=== PATIENT | female | born 1985 | race Two or more races ===

== ENCOUNTER → 2017-07-23 | Outpatient (CLI) | payer BC ==
[2017-07-23 10:10] LABS: Basophils # (auto) 0 uL; Basophils % (auto) 0.4 % (0.0-2.0); Eosinophils # (auto) 0 uL; Eosinophils % (auto) 0.4 % (0.0-7.0); Hematocrit 40.1 % (36.0-46.0); Hemoglobin 13.4 g/dL (12.2-16.2); Lymphocytes # (auto) 1.8 uL; Lymphocytes % (auto) 21.2 % (10.0-50.0); Mean Corpuscular Hemoglobin 29.8 pg (28.0-32.0); Mean Corpuscular Hgb Conc. 33.5 g/dL (32.0-36.0); Mean Platelet Volume 8.3 fL (6.9-10.8); Monocytes # (auto) 0.3 uL; Monocytes % (auto) 3.8 % (0.0-12.0); Neutrophils # (auto) 6.2 uL; Neutrophils % (auto) 74.2 % (37.0-80.0); Nucleated Red Blood Cells % 0.1 %; Platelet Count (auto) 247 10^3/uL (140-450); Red Cell Distribution Width 13.3 % (11.8-14.3); White Blood Cell 8.4 10^3/uL (4.4-10.8)
== END | disposition home or self-care (01) ==
LOC: LAB 09:14
PROVIDERS: ATTEND Obstetrics & Gynecology
DX: Z34.00 Encounter for supervision of normal first pregnancy, unspecified trimester (principal)
CPT/HCPCS: 36415; 80307; 83036; 84144; 84702; 85025; 86703; 86762; 86850; 86900; 86901; 87086; 87340

== ENCOUNTER → 2017-11-25 | Outpatient (CLI) | payer BC ==
[2017-11-25 07:48] LABS: Hematocrit 35.1 % (36.0-46.0); Hemoglobin 11.7 g/dL (12.2-16.2); Mean Corpuscular Hemoglobin 29.3 pg (28.0-32.0); Mean Corpuscular Hgb Conc. 33.3 g/dL (32.0-36.0); Platelet Count (auto) 242 10^3/uL (140-450); Red Blood Cells 3.99 10^6/uL (4.0-5.20); Red Cell Distribution Width 13.8 % (11.8-14.3); White Blood Cell 8.6 10^3/uL (4.4-10.8)
[2017-11-25 08:13] LABS: Basophils % (manual) 0 (0.0-2.0); Blast Cells 0; Metamyelocytes % 0; Myelocytes % 0; Promyelocytes % 0; Reactive Lymphocytes 0
[2017-11-25 09:47] LABS: Band Neutrophils % (manual) 3; Lymphocytes % (manual) 23 (10.0-50.0)
[2017-11-25 09:48] LABS: Eosinophils % (manual) 1 (0-7); Monocytes % (manual) 4 (0-12)
== END | disposition home or self-care (01) ==
LOC: LAB 07:12
PROVIDERS: ATTEND Obstetrics & Gynecology
DX: O99.810 Abnormal glucose complicating pregnancy (principal); Z3A.00 Weeks of gestation of pregnancy not specified
CPT/HCPCS: 36415; 82951; 85007; 85027

== ENCOUNTER → 2018-01-16 | Outpatient (CLI) | payer BC ==
[2018-01-16 14:30] LABS: Basophils # (auto) 0 uL; Basophils % (auto) 0.5 % (0.0-2.0); Eosinophils # (auto) 0.1 uL; Eosinophils % (auto) 0.6 % (0.0-7.0); Hematocrit 37.8 % (36.0-46.0); Hemoglobin 12.5 g/dL (12.2-16.2); Lymphocytes # (auto) 2.1 uL; Lymphocytes % (auto) 19.7 % (10.0-50.0); Mean Corpuscular Hemoglobin 28.7 pg (28.0-32.0); Mean Corpuscular Hgb Conc. 33.2 g/dL (32.0-36.0); Mean Corpuscular Volume 86.3 fL (80.0-100.0); Monocytes # (auto) 0.4 uL; Monocytes % (auto) 3.5 % (0.0-12.0); Neutrophils # (auto) 7.9 uL; Neutrophils % (auto) 75.7 % (37.0-80.0); Nucleated Red Blood Cells % 0.1 %; Platelet Count (auto) 264 10^3/uL (140-450); Red Blood Cells 4.38 10^6/uL (4.0-5.20); White Blood Cell 10.4 10^3/uL (4.4-10.8)
== END | disposition home or self-care (01) ==
LOC: LAB 14:17
PROVIDERS: ATTEND Obstetrics & Gynecology
DX: O23.599 Infection of other part of genital tract in pregnancy, unspecified trimester (principal); Z3A.00 Weeks of gestation of pregnancy not specified
CPT/HCPCS: 36415; 85025; 87081

== ENCOUNTER 2018-02-22 02:45 | Inpatient (IN) | payer BC ==
[~2018-02-22] VITALS: Ht 162.6 cm; Wt 98.4 kg
[2018-02-22] MEDS ORDERED: PREN-96 OR (03:55)
[2018-02-22] MEDS ORDERED: LACT. RINGERS/OXYTOCIN 20UNITS 1,000 ML IV SCH (07:07)
[2018-02-22] MEDS ORDERED: PHISODERM TOP SOLN 240ML BTL TOP PRN (07:15)
[2018-02-22] MEDS ORDERED: NALBUPHINE HCL 10 MG/1ml INJECTION IV PRN (07:15)
[2018-02-22] MEDS ORDERED: LIDOCAINE 2% (LOCAL ANESTH.) PF 5ml SDV ID PRN (07:15)
[2018-02-22] MEDS ORDERED: DERMOPLAST 60ML BOTTLE TOP PRN (07:15)
[2018-02-22] MEDS ORDERED: WITCH HAZEL-GLYCERIN PAD TOP PRN (07:15)
[2018-02-22] MEDS ORDERED: ceFAZolin 1GM/100ML 100 ML IV ONE (07:45)
[2018-02-22] MEDS: LACTATED RINGER'S 1,000 ML IV SCH ×3 (07:50→23:07)
[2018-02-22 07:55] LABS: Basophils # (auto) 0 uL; Basophils % (auto) 0.3 % (0.0-2.0); Eosinophils # (auto) 0 uL; Eosinophils % (auto) 0.1 % (0.0-7.0); Hematocrit 37.1 % (36.0-46.0); Hemoglobin 12.3 g/dL (12.2-16.2); Lymphocytes # (auto) 1.9 uL; Mean Corpuscular Hemoglobin 28.9 pg (28.0-32.0); Mean Corpuscular Hgb Conc. 33.2 g/dL (32.0-36.0); Mean Corpuscular Volume 87.1 fL (80.0-100.0); Monocytes # (auto) 0.4 uL; Monocytes % (auto) 3.2 % (0.0-12.0); Neutrophils % (auto) 82.4 % (37.0-80.0); Platelet Count (auto) 205 10^3/uL (140-450); Red Blood Cells 4.26 10^6/uL (4.0-5.20); Red Cell Distribution Width 14.9 % (11.8-14.3); White Blood Cell 13.4 10^3/uL (4.4-10.8)
[2018-02-22 08:01] LABS: INR 0.89 (0.9-1.15); Partial Thromboplastin Time 26.6 sec (22.64-33.71); Prothrombin Time 9.7 sec (9.37-12.3)
[2018-02-22 08:04] LABS: Urine Bacteria NONE SEEN /hpf (None Seen); Urine Blood 1+ /uL (Negative); Urine Mucus FEW (None Seen); Urine Specific Gravity 1.013 (1.001-1.035); Urine WBC 1 /hpf (0 - 5)
[2018-02-22 08:31] LABS: Albumin 2.7 g/dL (3.4-5.0); BUN/Creatinine Ratio 14.3; Bilirubin, Total 0.3 mg/dL (0.2-1.0); Calcium 8.8 mg/dL (8.5-10.1); Potassium 4.6 mmol/L (3.5-5.1); Total Protein 7.1 g/dL (6.4-8.2)
[2018-02-22] MEDS ORDERED: ePHEDrine SULFATE 50 MG/ML AMP IV ONE ×2 (12:30→19:15)
[2018-02-22] MEDS ORDERED: LIDOCAINE HCL 2 %PF INJ 10ML AMP IJ ONE (12:30)
[2018-02-22] MEDS ORDERED: NALOXONE HCL 0.4 MG/ML VIAL IV ONE ×2 (12:30→19:15)
[2018-02-22] MEDS ORDERED: fentaNYL W ROPIVACAINE 150 ML EPI SCH (12:30)
[2018-02-22] MEDS ORDERED: fentaNYL CITRATE 100 MCG/2 ML VL IV ONE ×2 (12:30→19:15)
[2018-02-22] MEDS: ceFAZolin 1GM/100ML 100 ML IV SCH ×2 (13:50→22:16)
[2018-02-23] VITALS (12 sets, daily range): BP systolic 112–149; BP diastolic 58–97
[2018-02-23] MEDS ORDERED: OXYTOCIN 10 UNIT/ML 10ML VIAL ONE (03:26)
[2018-02-23] MEDS ORDERED: MORPHINE SULF(PF) 0.5MG/ML 10ML VIAL ONE (03:26)
[2018-02-23] MEDS ORDERED: LIDOCAINE HCL 2 %PF INJ 10ML AMP IJ ONE ×2 (03:31→04:50)
[2018-02-23] MEDS ORDERED: ONDANSETRON HCL 4 MG/2 ML VIAL ONE (03:31)
[2018-02-23] MEDS ORDERED: ceFAZolin 1GM VL ONE (03:31)
[2018-02-23] MEDS ORDERED: DEXAMETHASONE SOD PHOS 10MG/1ML VIAL INJ ONE (03:31)
[2018-02-23] MEDS ORDERED: ePHEDrine SULFATE 50 MG/ML AMP ONE (03:38)
[2018-02-23] MEDS ORDERED: NALOXONE HCL 0.4 MG/ML VIAL IV PRN ×2 (04:00)
[2018-02-23] MEDS ORDERED: METOCLOPRAMIDE HCL 5MG/ml INJ 2ml VIAL IV ONE (04:00)
[2018-02-23] MEDS ORDERED: HYDROmorphone HCL 2 MG/ML VL IV PRN ×2 (04:00)
[2018-02-23] MEDS ORDERED: ONDANSETRON HCL 4 MG/2 ML VIAL IV PRN ×2 (04:00→05:30)
[2018-02-23] MEDS ORDERED: diphenhdrAMINE HCL 50 MG/1 ML VL IV PRN (04:00)
[2018-02-23] MEDS ORDERED: LABETALOL HCL 5 MG/ML 4ML SYRINGE IV PRN (04:00)
[2018-02-23] MEDS ORDERED: ePHEDrine SULFATE 50 MG/ML AMP IV PRN (04:00)
[2018-02-23] MEDS ORDERED: PROPOFOL 10 MG/ML 20 ML IV ONE ×2 (04:39→05:00)
[2018-02-23] MEDS: LACTATED RINGER'S 1,000 ML IV SCH ×3 (05:26→18:00)
[2018-02-23] MEDS ORDERED: MORPHINE SULFATE 4 MG/ML SYR/VIAL IV PRN (05:30)
[2018-02-23] MEDS ORDERED: ceFAZolin 1GM/100ML 50 ML IV SCH ×2 (06:00→13:00)
[2018-02-23] MEDS ORDERED: MORPHINE SULFATE 8mg/ml INJ SDV IV PRN (10:45)
[2018-02-23] MEDS: KETOROLAC TROMETH 30 MG/ML 1ML VIAL IV SCH ×2 (12:01→18:00)
[2018-02-23] MEDS: ceFAZolin 1GM/100ML 100 ML IV SCH ×2 (12:34→21:35)
[2018-02-23] MEDS ORDERED: ceFAZolin 1GM/100ML 100 ML IV SCH (21:00)
[2018-02-24 04:00] VITALS: BP 98/60
[2018-02-24] MEDS ORDERED: ceFAZolin 1GM/100ML 100 ML IV SCH (05:00)
[2018-02-24] MEDS: ceFAZolin 1GM/100ML 100 ML IV SCH (05:35)
[2018-02-24] MEDS: KETOROLAC TROMETH 30 MG/ML 1ML VIAL IV SCH (05:35)
[2018-02-24 07:15] VITALS: BP 116/72
[2018-02-24] MEDS: LACTATED RINGER'S 1,000 ML IV SCH ×2 (08:19→18:19)
[2018-02-24 09:02] LABS: Basophils # (auto) 0 uL; Basophils % (auto) 0.2 % (0.0-2.0); Eosinophils # (auto) 0.1 uL; Eosinophils % (auto) 0.8 % (0.0-7.0); Hematocrit 27.5 % (36.0-46.0); Hemoglobin 9.3 g/dL (12.2-16.2); Lymphocytes # (auto) 2.5 uL; Lymphocytes % (auto) 19.3 % (10.0-50.0); Mean Corpuscular Hemoglobin 29.4 pg (28.0-32.0); Mean Corpuscular Hgb Conc. 33.7 g/dL (32.0-36.0); Mean Corpuscular Volume 87.2 fL (80.0-100.0); Monocytes # (auto) 0.5 uL; Monocytes % (auto) 4.2 % (0.0-12.0); Neutrophils # (auto) 9.7 uL; Neutrophils % (auto) 75.5 % (37.0-80.0); Platelet Count (auto) 138 10^3/uL (140-450); Red Blood Cells 3.16 10^6/uL (4.0-5.20); Red Cell Distribution Width 15.2 % (11.8-14.3); White Blood Cell 12.9 10^3/uL (4.4-10.8)
[2018-02-24 09:25] LABS: Albumin 1.9 g/dL (3.4-5.0); Bilirubin, Total 0.3 mg/dL (0.2-1.0); Calcium 7.7 mg/dL (8.5-10.1); Potassium 4.2 mmol/L (3.5-5.1); Total Protein 5.2 g/dL (6.4-8.2)
[2018-02-24] MEDS ORDERED: HYDROcodone-ACET 5/325MG TAB PO PRN (09:45)
[2018-02-24] MEDS ORDERED: DOCUSATE SOD 100 MG CAP PO SCH (10:00)
[2018-02-24] MEDS: HYDROcodone-ACET 5/325MG TAB PO PRN ×2 (10:11→20:06)
[2018-02-24 11:05] VITALS: BP 116/77
[2018-02-24] MEDS: DOCUSATE SOD 100 MG CAP PO SCH ×2 (11:55→21:51)
[2018-02-24 15:30] VITALS: BP 107/63
[2018-02-24] MEDS: IBUPROFEN 800 MG TAB PO PRN (17:29)
[2018-02-24 19:00] VITALS: BP 118/74
[2018-02-24] MEDS ORDERED: FERROUS SULFATE 325 MG TAB PO ONE (22:13)
[2018-02-24] MEDS: FERROUS SULFATE 325 MG TAB PO SCH (22:29)
[2018-02-24 23:15] VITALS: BP 133/89
[2018-02-25] MEDS: IBUPROFEN 800 MG TAB PO PRN ×3 (02:24→22:30)
[2018-02-25 03:01] VITALS: BP 117/67
[2018-02-25 03:53] VITALS: BP 133/89
[2018-02-25] MEDS: LACTATED RINGER'S 1,000 ML IV SCH ×2 (04:19→14:19)
[2018-02-25] MEDS: HYDROcodone-ACET 5/325MG TAB PO PRN ×2 (05:46→16:24)
[2018-02-25 07:00] VITALS: BP 109/80
[2018-02-25] MEDS: FERROUS SULFATE 325 MG TAB PO SCH ×2 (10:25→22:30)
[2018-02-25] MEDS: DOCUSATE SOD 100 MG CAP PO SCH ×2 (10:25→22:30)
[2018-02-25 11:00] VITALS: BP 108/73
[2018-02-25 15:00] VITALS: BP 118/81
[2018-02-25 19:00] VITALS: BP 122/77
[2018-02-25] MEDS ORDERED: IOHEXOL 300 MG/ML 100ML BOTTLE IJ ONE (19:37)
[2018-02-25 19:46] LABS: Basophils # (auto) 0.1 uL; Eosinophils # (auto) 0.1 uL; Eosinophils % (auto) 1.4 % (0.0-7.0); Hematocrit 28.5 % (36.0-46.0); Hemoglobin 9.5 g/dL (12.2-16.2); Lymphocytes # (auto) 1.9 uL; Lymphocytes % (auto) 22.6 % (10.0-50.0); Mean Corpuscular Hemoglobin 29.4 pg (28.0-32.0); Mean Corpuscular Hgb Conc. 33.4 g/dL (32.0-36.0); Mean Corpuscular Volume 87.9 fL (80.0-100.0); Monocytes # (auto) 0.3 uL; Monocytes % (auto) 4.1 % (0.0-12.0); Neutrophils # (auto) 6.1 uL; Neutrophils % (auto) 70.9 % (37.0-80.0); Nucleated Red Blood Cells % 0.1 %; Platelet Count (auto) 173 10^3/uL (140-450); Red Blood Cells 3.24 10^6/uL (4.0-5.20); Red Cell Distribution Width 15.3 % (11.8-14.3); White Blood Cell 8.6 10^3/uL (4.4-10.8)
[2018-02-25] MEDS ORDERED: BISACODYL 10 MG RECT SUPP PR PRN (21:45)
[2018-02-25] MEDS: CEPHALEXIN 250 MG CAP PO SCH (22:30)
[2018-02-26] MEDS: LACTATED RINGER'S 1,000 ML IV SCH ×2 (00:19→10:19)
[2018-02-26 03:00] VITALS: BP 131/84
[2018-02-26] MEDS: HYDROcodone-ACET 5/325MG TAB PO PRN (03:55)
[2018-02-26] MEDS: CEPHALEXIN 250 MG CAP PO SCH ×2 (06:04→12:45)
[2018-02-26] MEDS: IBUPROFEN 800 MG TAB PO PRN (06:05)
[2018-02-26 07:06] VITALS: BP 113/82
[2018-02-26] MEDS: FERROUS SULFATE 325 MG TAB PO SCH (09:50)
[2018-02-26] MEDS: DOCUSATE SOD 100 MG CAP PO SCH (09:50)
[2018-02-26] MEDS ORDERED: MEASLES, MUMPS & RUBELLA VAC(MMRII) 0.5ML SC ONE (10:00)
[2018-02-26] MEDS ORDERED: LEVOFLOXACIN 500 MG TAB PO SCH (10:00)
[2018-02-26 11:20] VITALS: BP 113/82
== END 2018-02-26 13:15 | disposition home or self-care (01) | DRG 766 ==
LOC: LDRP 02:45 → NUR 02-23 12:13 → LDRP 02-23 12:16
PROVIDERS: ADMIT Specialist; ATTEND Specialist
PROC: 10D00Z1 Extraction of Products of Conception, Low, Open Approach (ICD-10-PCS; principal; 2018-02-23 04:13)
PROC: 3E0234Z Introduction of Serum, Toxoid and Vaccine into Muscle, Percutaneous Approach (ICD-10-PCS; 2018-02-26)
DX: O41.03X0 Oligohydramnios, third trimester, not applicable or unspecified (principal); O62.0 Primary inadequate contractions; O77.0 Labor and delivery complicated by meconium in amniotic fluid; Z3A.40 40 weeks gestation of pregnancy; Z37.0 Single live birth; Z23 Encounter for immunization
CPT/HCPCS: 36415; 51702; 59025; 62282; 74177; 76815; 80053; 81001; 81002; 85025; 85610; 85730; 86850; 86900; 86901; 94760; 96361; 96365; 96366; 96375; J0690; J1100; J1885; J2405; J2590; J2704; J3010

== ENCOUNTER → 2019-02-09 | Outpatient (CLI) | payer BC ==
[~2019-02-09] MED LIST: PREN-96 OR
[2019-02-09 08:06] LABS: Basophils # (auto) 0.1 uL; Basophils % (auto) 1.3 % (0.0-2.0); Eosinophils # (auto) 0.3 uL; Eosinophils % (auto) 5.3 % (0.0-7.0); Hematocrit 41.6 % (36.0-46.0); Hemoglobin 13.8 g/dL (12.2-16.2); Lymphocytes # (auto) 1.9 uL; Lymphocytes % (auto) 37.6 % (10.0-50.0); Mean Corpuscular Hemoglobin 28.9 pg (28.0-32.0); Mean Corpuscular Hgb Conc. 33.1 g/dL (32.0-36.0); Mean Corpuscular Volume 87.4 fL (80.0-100.0); Monocytes # (auto) 0.3 uL; Monocytes % (auto) 5.7 % (0.0-12.0); Neutrophils # (auto) 2.5 uL; Neutrophils % (auto) 50.1 % (37.0-80.0); Nucleated Red Blood Cells % 0.1 %; Platelet Count (auto) 228 10^3/uL (140-450); Red Blood Cells 4.76 10^6/uL (4.0-5.20); Red Cell Distribution Width 13.4 % (11.8-14.3); White Blood Cell 5.1 10^3/uL (4.4-10.8)
[2019-02-09 08:13] LABS: Urine Bacteria NONE SEEN /hpf (None Seen); Urine Blood 2+ /uL (Negative); Urine Specific Gravity 1.016 (1.001-1.035); Urine WBC 3 /hpf (0 - 5)
[2019-02-09 08:55] LABS: Potassium 4.2 mmol/L (3.5-5.1)
[2019-02-09 09:13] LABS: Albumin 3.6 g/dL (3.4-5.0); BUN/Creatinine Ratio 20.9; Bilirubin, Total 0.6 mg/dL (0.2-1.0); Calcium 8.5 mg/dL (8.5-10.1); Total Protein 7.4 g/dL (6.4-8.2)
== END | disposition home or self-care (01) ==
LOC: LAB 07:40
PROVIDERS: ATTEND Nurse Practitioner
DX: E78.5 Hyperlipidemia, unspecified (principal)
CPT/HCPCS: 36415; 80053; 80061; 81001; 82306; 83036; 84443; 85025